=== PATIENT | female | born 1995 | race Caucasian/White ===

== ENCOUNTER 2023-03-17 19:41 | Inpatient (IN) | payer BC, SELFPAY ==
[2023-03-17 22:13] LABS: Amphetamine Screen Urine NEGATIVE (NEGATIVE); Barbiturates Screen Urine NEGATIVE (NEGATIVE); Benzodiazepines Screen Urine NEGATIVE (NEGATIVE); Buprenorphine Screen Urine NEGATIVE (NEGATIVE); Cannabinoid Screen Urine NEGATIVE (NEGATIVE); Cocaine Screen Urine NEGATIVE (NEGATIVE); Methadone Screen Urine NEGATIVE (NEGATIVE); Methamphetamines Screen Urine NEGATIVE (NEGATIVE); Opiate Screen Urine NEGATIVE (NEGATIVE); Oxycodone Screen Urine NEGATIVE (NEGATIVE); Phencyclidine Screen Urine NEGATIVE (NEGATIVE); Tricyclic Antidepressant Urine NEGATIVE (NEGATIVE)
[2023-03-17 22:47] LABS: Hemoglobin 11.4 g/dL (12.0-16.0); Mean Corpuscular HGB Conc 34.5 g/dL (29.9-35.2); Mean Corpuscular Hemoglobin 31.2 pg (26.7-34.0); Mean Corpuscular Volume 90.4 fL (81.0-99.0); Mean Platelet Volume 11.5 fL (9.5-13.5); Platelet Count 249 10^3/uL (150-450); Red Blood Count 3.65 10^6/uL (4.20-5.40); Red Cell Distribution Width 13.2 % (11.0-15.0); White Blood Count 9.6 10^3/uL (4.0-11.0)
[2023-03-17 22:49] VITALS: TEMP 36.9
[2023-03-17 22:49] LABS: Bilirubin Urine NEGATIVE (NEGATIVE); Blood Urine LARGE (NEGATIVE); Clarity Urine CLEAR (CLEAR); Color Urine YELLOW (YELLOW); Glucose Urine UA NEGATIVE (NEGATIVE); Ketones Urine NEGATIVE (NEGATIVE); Leukocyte Esterase Urine TRACE (NEGATIVE); Nitrite Urine NEGATIVE (NEGATIVE); Protein Urine TRACE mg/dL (NEG/TRACE); Specific Gravity Urine 1.025 (1.005-1.025); pH Urine 6.5 (5.0-9.0)
[2023-03-17 22:50] VITALS: BP 115/61; PULSE 82
[2023-03-17 22:51] LABS: Urine Microscopic Indicated YES
[2023-03-17 22:55] VITALS: BP 115/61; PULSE 82; RESP 18; TEMP 36.9
[2023-03-17 22:58] LABS: Bacteria Urine NONE SEEN #/HPF (NONE SEEN); Cast Seen? NONE SEEN #/LPF (NONE SEEN); Crystals Seen? None Seen #/HPF (None Seen); Mucus Urine NONE SEEN (NONE SEEN); Squamous Epithelial Cell Urine MANY #/LPF (NONE/RARE); Urine Culture Indicated YES
[2023-03-17] MEDS: ZOLPIDEM TARTRATE 5 MG TABLET PO (23:14)
[2023-03-18] VITALS (46 sets, daily range): BP systolic 109–138; BP diastolic 58–76; PULSE 56–91; RESP 16; TEMP 36.6–37.2
[2023-03-18] MEDS: 0.9 % SODIUM CHLORIDE 1,000 ML 1000 ML IV (02:53)
[2023-03-18] MEDS: AMPICILLIN SODIUM 2,000 MG in 0.9 % SODIUM CHLORIDE 100 ML 200 MG IV (02:53)
[2023-03-18] MEDS: 0.9 % SODIUM CHLORIDE 1,000 ML 125 ML IV (04:26)
[2023-03-18] MEDS: ROPIVACAINE HCL/PF 400 MG/200 ML PREMIX 6 MG EPIDURAL (04:27)
[2023-03-18] MEDS: FENTANYL CITRATE/PF 100 MCG/2 ML VIAL EPIDURAL ×2 (04:27→04:29)
[2023-03-18] MEDS: AMPICILLIN SODIUM 1,000 MG in 0.9 % SODIUM CHLORIDE 50 ML 100 MG IV (06:34)
--- NOTE | 2023-03-18 07:11 | PM.OBHP ---
OB - H&P: HPI History of Present Illness Chief complaint: CONTRACTIONS : 1 Para: 0 Gestational age based on last menstrual period: 40.6 Narrative: patient arrived to unit last evening in early labor, cramping and water intact. History of Present Dating criteria: LMP confirmed by 1st trimester US care: good care Ultrasounds: normal 1st trimester US and normal mid trimester US complications comment: anxiety Medical complications OB: none Labs Blood type: A (+) positive Rubella: immune RPR/VDLR: nonreactive GBS status: positive HBsAG: negative Narrative: +GBS in urine Review of Systems ROS Narrative ROS negative Meds Home Medications and Allergies Home Medications Medication Instructions Recorded Confirmed Type vitamin no.115-iron 29 1 tab PO Q24H 03/18/23 03/18/23 History mg-folic acid 1 mg chewable tablet ( 19) Allergies Allergy/AdvReac Type Severity Reaction Status Date / Time No Known Drug Allergies Allergy Verified 03/17/23 21:46 Exam Constitutional Vital Signs, click to edit/add: Last Vital Signs Temp 98 F 03/18/23 05:42 Pulse 72 03/18/23 07:11 Resp 16 03/18/23 06:27 BP 121/72 03/18/23 07:11 O2 Del Method Room Air 03/17/23 22:55 Common normals: no apparent distress, oriented x3 and alert General appearance: cooperative, comfortable and well kempt Orientation/consciousness: Yes awake, Yes oriented to person, Yes oriented to place and Yes oriented to time HENMT Common normals: normocephalic Eye Common normals: EOMs intact bilaterally Neck & C-Spine Common normals: full ROM Lymph Lymphatic: no lymphadenopathy noted Respiratory Common normals: normal respiratory effort Effort & inspection: able to speak in complete sentences Auscultation: clear to auscultation bilaterally Percussion: percussion normal Cardio Common normals: regular rate and regular rhythm Rate: regular rate Rhythm: regular rhythm GI Common normals: Normal to inspection, nondistended, normoactive bowel sounds present Common normals: no CVA tenderness Back & Pelvis Common normals: no CVA tenderness Extremity Common normals: normal to inspection, full ROM and no calf tenderness Neuro Common normals: oriented x3 Sensorium/orientation: awake, alert, oriented to person, oriented to place and oriented to time Psych Common normals: mental status grossly normal, thought process normal, cooperative and affect normal Attitude: calm Results Labs Labs: Short CBC 03/17/23 Range/Units 21:05 WBC 9.6 (4.0-11.0) 10^3/uL Hgb 11.4 L (12.0-16.0) g/dL Hct 33.0 L (36.0-48.0) % Plt Count 249 (150-450) 10^3/uL Urine 03/17/23 Range/Units 21:05 Urine Color Yellow (YELLOW) Urine Clarity Clear (CLEAR) Urine pH 6.5 (5.0-9.0) Ur Specific [place] 1.025 (1.005-1.025) Urine Protein Trace (NEG/TRACE) mg/dL Urine Glucose (UA) Negative (NEGATIVE) mg/dL OB - A/P Assessment and Plan (1) Term : Plan routine labor orders, epidural when desires. Anticipate
--- NOTE | 2023-03-18 07:20 | PM.EN ---
Event Note Event Note: 0705 to room to assess patient. SVE and AROM. Sterile amni-hook used for AROM with return of moderate amount of clear, odorless fluid. heart tones stable before, during and after rupture of membranes. SVE 7-8/100/-1. patient tolerated procedure well.
[2023-03-18] MEDS: OXYTOCIN/0.9 % SODIUM CHLORIDE 20 UNITS/1,000 ML PLAST..BAG 125 UNIT IV (09:11)
[2023-03-18] MEDS: KETOROLAC TROMETHAMINE 30 MG/ML VIAL IVP (09:41)
--- NOTE | 2023-03-18 09:57 | PM.OBPRCVD ---
Procedure Procedure: normal spontaneous vaginal delivery Intrapartal events: None Induction method: none Delivery augmentation: rupture of membranes and pitocin Delivery monitor: external FHT and external uterine Route of delivery: Episiotomy Description: none Laceration description: labial (bilateral ) Delivery repair: Vicryl Estimated blood loss (mL): 200 Anesthesia type: None Disposition: no change Delivery date: 03/18/23 Gender: female presentation: vertex Placental delivery description: Spontaneous cord description: 3 Vessels heart rate - 1 minute: 100 bpm or Greater respiratory effort - 1 minute: Spontaneous/Strong Cry muscle tone - 1 minute: Active Movement reflex response - 1 minute: Prompt Response color - 1 minute: Bluish Hands or Feet total score - 1 minute: 9 heart rate - 5 minute: 100 bpm or Greater respiratory effort - 5 minute: Spontaneous/Strong Cry muscle tone - 5 minute: Active Movement reflex response - 5 minute: Prompt Response color - 5 minute: Bluish Hands or Feet total score - 5 minute: 9
[2023-03-18] MEDS: GLYCERIN/WITCH HAZEL PADS 1 PAD TOPICAL (13:40)
[2023-03-18] MEDS: BENZOCAINE/MENTHOL 85 GRAM SPRAY BOTTLE 1 APPLIC TOPICAL (13:40)
[2023-03-18] MEDS: IBUPROFEN 400 MG TABLET 800 MG PO ×2 (13:41→21:00)
--- NOTE | 2023-03-18 23:06 | W.PC.ACHO ---
Registration Status: ADM IN Primary Language: Icelandic Preferred Language: Icelandic Active Medications Generic Name Dose Route Start Last Admin Trade Name Freq PRN Reason Stop Dose Admin Acetaminophen 650 mg 03/18/23 09:49 Acetaminophen 325 Mg Tablet PO Q6H PRN Mild Pain Al Hydroxide/Mg Hydroxide 2,400 mg 03/18/23 09:49 Magnesium Hydroxide 2,400 Mg/10 Ml Oral.Susp PO Q6H PRN Dyspepsia Benzocaine/Menthol 1 applic 03/18/23 09:49 03/18/23 13:40 Benzocaine/Menthol 85 Gram [place] Bottle TOPICAL 1 applic Q2H PRN Administration Pain Calcium Carbonate 500 mg 03/17/23 22:25 Calcium Carbonate 500 Mg (200mg Elemental) Tab Chew PO TID PRN Indigestion Carboprost Tromethamine 250 mcg 03/17/23 21:46 Carboprost Tromethamine 250 Mcg/Ml 1 Ml Vial IM 03/19/23 10:00 Q15M PRN Bleeding Diphtheria/Pertussis/Tetanus Vacc 0.5 ml 03/20/23 09:00 Adacel Diph,Pertuss(Acell),Tet Vac/Pf 0.5 Ml Adult Syringe IM 03/20/23 09:01 .ONCE ONE Docusate Sodium 100 mg 03/19/23 09:00 Docusate Sodium 100 Mg Capsule PO BID LEWIS Sodium Chloride 1,000 mls @ 125 mls/hr 03/17/23 22:00 03/18/23 09:11 Sodium Chloride 0.9% 1,000 Ml IV Infused .Q8H LEWIS Infusion Ibuprofen 800 mg 03/18/23 10:00 03/18/23 21:00 Ibuprofen 400 Mg Tablet PO 800 mg Q8H LEWIS Administration Measles/Mumps/Rubella Vaccine Live 0.5 ml 03/20/23 09:00 Measles,Mumps,Rubella Vacc/Pf 0.5 Ml Vial SQ 03/20/23 09:01 .ONCE ONE Methylergonovine Maleate 0.2 mg 03/17/23 21:46 Methylergonovine Maleate 0.2 Mg Tablet PO 03/19/23 10:00 Q4H PRN Uterine Contractility/Contract Methylergonovine Maleate 0.2 mg 03/17/23 21:46 Methylergonovine Maleate 0.2 Mg/Ml Ampule IM 03/19/23 10:00 ONCE PRN Uterine Contractility/Contract Misoprostol 600 mcg 03/17/23 21:46 Misoprostol 100 Mcg Tablet PO 03/19/23 10:00 ONCE PRN Uterine Bleeding Misoprostol 800 mcg 03/17/23 21:46 Misoprostol 100 Mcg Tablet SL 03/19/23 10:00 ONCE PRN Uterine Bleeding Misoprostol 1,000 mcg 03/17/23 21:46 Misoprostol 100 Mcg Tablet DE 03/19/23 10:00 ONCE PRN Uterine Bleeding Ondansetron HCl 4 mg 03/17/23 21:46 Ondansetron Pf 4 Mg/2 Ml Vial IV Q6H PRN Nausea And Vomiting Senna 17.2 mg 03/18/23 20:00 Sennosides 8.6 Mg Tablet PO QHS PRN Constipation Simethicone 80 mg 03/18/23 09:49 Simethicone 80 Mg Tab.Chew PO QID PRN Abdominal Distention Temazepam 15 mg 03/18/23 09:54 Temazepam 15 Mg Capsule PO QHS PRN Sleep Witch Yvette/Glycerin 1 pad 03/18/23 09:49 03/18/23 13:40 Glycerin/Witch Yvette Pads TOPICAL 1 pad Q2H PRN Administration Pain Zolpidem Tartrate 5 mg 03/17/23 22:25 03/17/23 23:14 Zolpidem Tartrate 5 Mg Tablet PO 5 mg HS PRN Administration Sleep Diet Category Date Time Status Regular Consistency Diet Diet 03/18/23 Breakfast Active Consults Category Date Time Status Consult to Anesthesiology Routine Cons 03/18/23 Ordered Respiratory Oxygen Delivery Method Room Air Oxygen Delivery Method Room Air Bowels Bowel Pattern No Bowel Movement Catheter Urinary Catheter Date of 03/18/23 Insertion [Urethral] Urinary Catheter Time of 04:45 Insertion [Urethral]
[2023-03-19] MEDS: ACETAMINOPHEN 325 MG TABLET 650 MG PO ×2 (03:53→12:27)
[2023-03-19] MEDS: IBUPROFEN 400 MG TABLET 800 MG PO ×2 (06:32→17:31)
[2023-03-19 08:51] VITALS: TEMP 36.6
[2023-03-19 08:52] VITALS: BP 114/55; PULSE 63
[2023-03-19] MEDS: DOCUSATE SODIUM 100 MG CAPSULE PO ×2 (12:27→21:23)
--- NOTE | 2023-03-19 13:15 | P.OBPN_ITS ---
OB - PN: Subj Subjective Patient comments: no complaints and pain well controlled [place] status: doing well Exam Constitutional Vital Signs, click to edit/add: Last Vital Signs Temp 97.9 F 03/19/23 08:51 Pulse 63 03/19/23 08:52 Resp 16 03/18/23 23:10 BP 114/55 03/19/23 08:52 O2 Del Method Room Air 03/18/23 23:12 Documenting provider has reviewed patient's vital signs: yes Common normals: no apparent distress Respiratory Common normals: normal respiratory effort and clear to auscultation bilaterally Cardio Common normals: regular rate and regular rhythm GI Common normals: Normal to inspection, nondistended, normoactive bowel sounds present Extremity Common normals: no clubbing, cyanosis or edema and no calf tenderness OB - PN: A/P Assessment and Plan (1) Term : Plan - Vaginal Delivery day: 1 Plan: routine care Time Spent with Patient Time: Total time spent is greater than 50% in coordination of care (as documented) at patient's floor/unit and/or counseling patient: Total time spent with greater than 50% in coordination of care (as documented) at patient's floor/unit and/or counseling patient: less than 15 minutes
[2023-03-19 17:29] VITALS: BP 123/75; PULSE 68
--- NOTE | 2023-03-19 19:12 | W.PC.ACHO ---
Registration Status: ADM IN Primary Language: Icelandic Preferred Language: Icelandic Active Medications Generic Name Dose Route Start Last Admin Trade Name Freq PRN Reason Stop Dose Admin Acetaminophen 650 mg 03/18/23 09:49 03/19/23 12:27 Acetaminophen 325 Mg Tablet PO 650 mg Q6H PRN Administration Mild Pain Al Hydroxide/Mg Hydroxide 2,400 mg 03/18/23 09:49 Magnesium Hydroxide 2,400 Mg/10 Ml Oral.Susp PO Q6H PRN Dyspepsia Benzocaine/Menthol 1 applic 03/18/23 09:49 03/18/23 13:40 Benzocaine/Menthol 85 Gram [place] Bottle TOPICAL 1 applic Q2H PRN Administration Pain Calcium Carbonate 500 mg 03/17/23 22:25 Calcium Carbonate 500 Mg (200mg Elemental) Tab Chew PO TID PRN Indigestion Diphtheria/Pertussis/Tetanus Vacc 0.5 ml 03/20/23 09:00 Adacel Diph,Pertuss(Acell),Tet Vac/Pf 0.5 Ml Adult Syringe IM 03/20/23 09:01 .ONCE ONE Docusate Sodium 100 mg 03/19/23 09:00 03/19/23 12:27 Docusate Sodium 100 Mg Capsule PO 100 mg BID LEWIS Administration Sodium Chloride 1,000 mls @ 125 mls/hr 03/17/23 22:00 03/18/23 09:11 Sodium Chloride 0.9% 1,000 Ml IV Infused .Q8H LEWIS Infusion Ibuprofen 800 mg 03/18/23 10:00 03/19/23 17:31 Ibuprofen 400 Mg Tablet PO 800 mg Q8H LEWIS Administration Measles/Mumps/Rubella Vaccine Live 0.5 ml 03/20/23 09:00 Measles,Mumps,Rubella Vacc/Pf 0.5 Ml Vial SQ 03/20/23 09:01 .ONCE ONE Ondansetron HCl 4 mg 03/17/23 21:46 Ondansetron Pf 4 Mg/2 Ml Vial IV Q6H PRN Nausea And Vomiting Senna 17.2 mg 03/18/23 20:00 Sennosides 8.6 Mg Tablet PO QHS PRN Constipation Simethicone 80 mg 03/18/23 09:49 Simethicone 80 Mg Tab.Chew PO QID PRN Abdominal Distention Temazepam 15 mg 03/18/23 09:54 Temazepam 15 Mg Capsule PO QHS PRN Sleep Witch Yvette/Glycerin 1 pad 03/18/23 09:49 03/18/23 13:40 Glycerin/Witch [place]vette Pads TOPICAL 1 pad Q2H PRN Administration Pain Zolpidem Tartrate 5 mg 03/17/23 22:25 03/17/23 23:14 Zolpidem Tartrate 5 Mg Tablet PO 5 mg HS PRN Administration Sleep Respiratory Oxygen Delivery Method Room Air
[2023-03-20 00:51] VITALS: BP 100/54; PULSE 57; TEMP 35.6
[2023-03-20 01:00] VITALS: RESP 16; TEMP 36.6
[2023-03-20] MEDS: IBUPROFEN 400 MG TABLET 800 MG PO ×2 (02:25→10:19)
[2023-03-20 08:19] VITALS: BP 122/66; PULSE 64
[2023-03-20] MEDS: DOCUSATE SODIUM 100 MG CAPSULE PO (10:20)
--- NOTE | 2023-03-20 11:09 | PM.OBDS ---
DS: Providers Provider Date of admission: 03/17/23 19:41 Primary care physician: Non-Staff Physician, Admitting clinician: STACEY SANTOS Consults: 03/18/23 Consult to Anesthesiology Routine Consulting Provider: Rodrigo Maxwell Reason for consultation: epidural procedure Has provider been notified: No Attending physician on discharge: Ana Maria Clancy Discharging clinician: Ana Maria Clancy Anticipated date of discharge: 03/20/23 DS: Diagnosis Discharge Diagnosis (1) Term : Assessment and plan: doing well, delivered vaginally without problem Plan discharge home with follow up in six weeks OB - DS: Summary Hospital Course Hospital Course: uncomplicated Time spent discussing smoking cessation with patient: 3 to 10 minutes Peripartum Data - Vaginal Delivery Laceration description: labial (bilateral) Episiotomy Description: none Complications complications: none Delivery method: spontaneous vaginal delivery Gender: female Discharge plan: home Status at Discharge Cognitive/behavioral status at discharge: normal Functional status at discharge: independent ambulation Overall status at discharge: patient is back to baseline Time Spent with Patient Time attestation: Total time spent providing and/or coordinating discharge services: Time spent: less than 30 minutes Exam Narrative Exam Narrative: feels well, anxious to go home Constitutional Vital Signs, click to edit/add: Last Vital Signs Temp 97.8 F 03/20/23 01:00 Pulse 64 03/20/23 08:19 Resp 16 03/20/23 01:00 BP 122/66 03/20/23 08:19 O2 Del Method Room Air 03/20/23 01:00 Documenting provider has reviewed patient's vital signs: yes Common normals: no apparent distress, oriented x3, no limitations and healthy appearing General appearance: cooperative, comfortable and well kempt Orientation/consciousness: Yes awake, Yes oriented to person, Yes oriented to place and Yes oriented to time HENMT Common normals: normocephalic and head/scalp atraumatic Eye Common normals: PERRL Pupil: accommodation reflex normal Neck & C-Spine Common normals: full ROM Respiratory Common normals: normal respiratory effort Cardio Common normals: regular rate and regular rhythm GI Common normals: Normal to inspection, nondistended, normoactive bowel sounds present Common normals: no CVA tenderness Extremity Common normals: normal to inspection, full ROM and no calf tenderness Neuro Common normals: oriented x3, CN's II-XII intact bilaterally, moves all extremities, no focal motor deficits and no sensory deficits noted Psych Common normals: mental status grossly normal, thought process normal, cooperative and affect normal Discharge Plan Discharge Disposition: Home, Self-Care Condition: Good Assessment: day 2. Doing well without complaints. Normal lochia. Breasts soft. Bonding well with baby. Instructions given by provider. Health Concerns: none Plan of Treatment: Discharge home, follow up for care appointment at six weeks Discharge Medications: Continued 19 29 mg iron- 1 mg tablet,chewable 1 tab PO Q24H Activity: increase activity as tolerated Activity Detail: walking only exercise for six weeks, no swimming for three weeks Diet: regular diet Activity Restrictions/Additional Instructions: no sexual intercourse for six weeks Forms: Vaginal Delivery - Discharge, Portal Instructions Follow Up Appointments: will call for appointment for exam in six weeks with provider Discharge location: home
== END 2023-03-20 12:05 | disposition home or self-care (01) | DRG 807 ==
PROVIDERS: Admitting Provider Midwife; Visit Provider Obstetrics & Gynecology
DX: O48.0 Post-term pregnancy (principal); Z37.0 Single live birth; O99.824 Streptococcus B carrier state complicating childbirth; Z3A.40 40 weeks gestation of pregnancy; O70.0 First degree perineal laceration during delivery
CPT/HCPCS: 36415; 51702; 59025; 59050; 59410; 80307; 81001; 85027; 86850; 86900; 86901; 87086; 96365; 96375; 96376

== ENCOUNTER 2023-03-24 08:15 | Outpatient (OUT) | payer BC, SELFPAY ==
[2023-03-24 11:40] VITALS: BP 128/86; PULSE 82; RESP 16; TEMP 37.2; O2SAT 98
--- NOTE | 2023-03-24 11:46 | PC.NURSE ---
Niurka Barboza arrives for visit. feels well, is able to rest during the day, and is getting 3 hour stretches at night between feeds. States milk came in on day 3, baby feeds well with no latching difficulties. If it hurts, I take her off and re-latch her Denies concerns for self or for care. Discussed care of breasts, catching milk with haakaa vs pumping vigorously. is only using haakaa at this time to collect dripping milk. Sig. other supportive and engages easily.
== END 2023-03-24 11:40 | disposition home or self-care (01) ==
LOC: FBCO 08:21
PROVIDERS: Visit Provider Obstetrics & Gynecology
DX: Z39.2 Encounter for routine postpartum follow-up (principal)

== ENCOUNTER 2024-07-07 02:36 | Inpatient (IN) | payer BC, SELFPAY ==
[2024-07-07] VITALS (40 sets, daily range): BP systolic 116–154; BP diastolic 61–85; PULSE 51–85; TEMP 36.4–37.1
[2024-07-07 03:20] LABS: Hematocrit 29.7 % (36.0-48.0); Hemoglobin 10.2 g/dL (12.0-16.0); Mean Corpuscular HGB Conc 34.3 g/dL (29.9-35.2); Mean Corpuscular Hemoglobin 31.5 pg (26.7-34.0); Mean Corpuscular Volume 91.7 fL (81.0-99.0); Mean Platelet Volume 10.9 fL (9.5-13.5); Platelet Count 218 10^3/uL (150-450); Red Blood Count 3.24 10^6/uL (4.20-5.40); Red Cell Distribution Width 12.5 % (11.0-15.0); White Blood Count 7.1 10^3/uL (4.0-11.0)
[2024-07-07] MEDS: LACTATED RINGER'S SOLUTION 1,000 ML 125 ML IV ×2 (03:24→05:06)
[2024-07-07] MEDS: ROPIVACAINE HCL/PF 400 MG/200 ML PREMIX 8 MG EPIDURAL (04:07)
--- NOTE | 2024-07-07 04:13 | PM.OBHP ---
OB - H&P: HPI History of Present Illness Chief complaint: CONTRACTIONS : 2 Para: 1 Gestational age based on last menstrual period: 39.6 Comments: spontaneous labor at home. Arrived on unit and patient was 6 cm, admit for routine labor and delivery History of Present Dating criteria: LMP confirmed by 1st trimester US care: good care Ultrasounds: normal 1st trimester US and normal mid trimester US complications comment: late care. Medical complications OB: none Labs Blood type: A (+) positive Rubella: immune RPR/VDLR: nonreactive GBS status: negative HBsAG: negative Review of Systems ROS Status of ROS: 10 or more systems reviewed and unremarkable except as noted in history and below [facility] Medical History (Updated 03/24/23 @ 00:00 by ) Term ?Z34.90 - Encounter for supervision of normal , unspecified, unspecified trimester (ICD-10) Meds Home Medications and Allergies Home Medications ?Medication ?Instructions ?Recorded ?Confirmed ?Type vitamin no.115-iron 29 1 tab PO Q24H 03/18/23 03/18/23 History mg-folic acid 1 mg chewable tablet ( 19) Allergies Allergy/AdvReac Type Severity Reaction Status Date / Time No Known Drug Allergies Allergy Verified 03/17/23 21:46 Exam Constitutional Vital Signs, click to edit/add: Last Vital Signs Pulse 73 07/07/24 04:11 BP 122/69 07/07/24 04:11 Documenting provider has reviewed patient's vital signs: yes Common normals: no apparent distress General appearance: cooperative and comfortable Orientation/consciousness: Yes awake, Yes oriented to person, Yes oriented to place and Yes oriented to time HENMT Common normals: normocephalic Eye Common normals: EOMs intact bilaterally Neck & C-Spine Common normals: full ROM and no lymphadenopathy General: normal visual inspection Lymph Lymphatic: no lymphadenopathy noted Chest Common normals: inspection of chest normal Respiratory Common normals: normal respiratory effort Effort & inspection: able to speak in complete sentences Cardio Common normals: regular rate and regular rhythm Rate: regular rate Rhythm: regular rhythm GI Common normals: Normal to inspection, nondistended, normoactive bowel sounds present Inspection: normal to inspection Auscultation: normoactive bowel sounds Palpation: soft Common normals: no CVA tenderness External Female Exam: normal appearance of the urethra Bimanual exam- vagina & uterus: normal bimanual exam Back & Pelvis Common normals: no CVA tenderness Thoracic spine/upper back: normal to inspection Lumbar spine/lower back: normal to inspection Extremity Common normals: normal to inspection Neuro Common normals: oriented x3 Sensorium/orientation: awake, alert, oriented to person, oriented to place and oriented to time Psych Common normals: mental status grossly normal, thought process normal, cooperative and affect normal Attitude: calm Speech: normal speech Results Labs Labs: Short CBC 07/07/24 Range/Units 03:09 WBC 7.1 (4.0-11.0) 10^3/uL Hgb 10.2 L (12.0-16.0) g/dL Hct 29.7 L (36.0-48.0) % Plt Count 218 (150-450) 10^3/uL Urinary Catheter Management Urinary Catheter Management Urethral: Cath placed during this visit: no Urethral indwelling: Yes Reason for continuing: prolonged immobilization
--- NOTE | 2024-07-07 04:38 | PM.OBPN ---
Exam Narrative Exam Narrative: SVE 9/100/0 bulging bag/ Sterile am[place] used to perform AROM with return of moderate amount of lightly blood tinged fluid, odorless fluid. heart tones are stable, before, during and after rupture of membranes at 140's Constitutional Vital Signs, click to edit/add: Last Vital Signs Pulse 69 07/07/24 04:35 BP 119/71 07/07/24 04:35 Results Labs Labs: Short CBC 07/07/24 Range/Units 03:09 WBC 7.1 (4.0-11.0) 10^3/uL Hgb 10.2 L (12.0-16.0) g/dL Hct 29.7 L (36.0-48.0) % Plt Count 218 (150-450) 10^3/uL Urinary Catheter Management Urinary Catheter Management Urethral: Cath placed during this visit: no Urethral indwelling: Yes OB - PN: A/P Time Spent with Patient Time: Total time spent is greater than 50% in coordination of care (as documented) at patient's floor/unit and/or counseling patient: Total time spent with greater than 50% in coordination of care (as documented) at patient's floor/unit and/or counseling patient: less than 15 minutes
[2024-07-07] MEDS: OXYTOCIN/0.9 % SODIUM CHLORIDE 20 UNITS/1,000 ML PLAST..BAG 125 UNIT IV (05:40)
[2024-07-07] MEDS: LIDOCAINE HCL 1% 200 MG/20 ML MDV INJ (05:40)
--- NOTE | 2024-07-07 06:00 | PM.OBPRCVD ---
Procedure Procedure: Normal spontaneous vaginal delivery events: No Care (late care- care began in 2nd trimester ) Induction method: none Delivery augmentation: rupture of membranes Delivery monitor: external FHT and external uterine Route of delivery: Episiotomy Description: none L&D Laceration Description: perineal - 1st degree Delivery repair: Vicryl Estimated blood loss (mL): 75 Anesthesia type: Epidural Disposition: no change Infant Delivery date: 07/07/24 Gender: male presentation: vertex Placental delivery description: Spontaneous cord description: 3 Vessels heart rate - 1 minute: 100 bpm or Greater respiratory effort - 1 minute: Spontaneous/Strong Cry muscle tone - 1 minute: Active Movement reflex response - 1 minute: Prompt Response color - 1 minute: Bluish Hands or Feet total score - 1 minute: 9 heart rate - 5 minute: 100 bpm or Greater respiratory effort - 5 minute: Spontaneous/Strong Cry muscle tone - 5 minute: Active Movement reflex response - 5 minute: Prompt Response color - 5 minute: Bluish Hands or Feet total score - 5 minute: 9
[2024-07-07] MEDS: BENZOCAINE/MENTHOL 85 GRAM SPRAY BOTTLE 1 APPLIC TOPICAL (06:20)
[2024-07-07] MEDS: GLYCERIN/WITCH HAZEL PADS 1 PAD TOPICAL (06:20)
[2024-07-07] MEDS: IBUPROFEN 400 MG TABLET 800 MG PO ×2 (06:21→17:26)
[2024-07-07 06:24] LABS: Amphetamine Screen Urine NEGATIVE (NEGATIVE); Barbiturates Screen Urine NEGATIVE (NEGATIVE); Benzodiazepines Screen Urine NEGATIVE (NEGATIVE); Buprenorphine Screen Urine NEGATIVE (NEGATIVE); Cannabinoid Screen Urine NEGATIVE (NEGATIVE); Cocaine Screen Urine NEGATIVE (NEGATIVE); Methadone Screen Urine NEGATIVE (NEGATIVE); Methamphetamines Screen Urine NEGATIVE (NEGATIVE); Opiate Screen Urine NEGATIVE (NEGATIVE); Oxycodone Screen Urine NEGATIVE (NEGATIVE); Phencyclidine Screen Urine NEGATIVE (NEGATIVE); Tricyclic Antidepressant Urine NEGATIVE (NEGATIVE)
[2024-07-08] MEDS: IBUPROFEN 400 MG TABLET 800 MG PO ×2 (05:00→12:16)
[2024-07-08 08:15] VITALS: TEMP 36.8
[2024-07-08] MEDS: DOCUSATE SODIUM 100 MG CAPSULE PO (08:36)
[2024-07-08 08:40] VITALS: BP 121/75; PULSE 65
--- NOTE | 2024-07-08 11:52 | P.OBPN_ITS ---
OB - PN: Subj Subjective Patient comments: no complaints and pain well controlled [place] status: doing well Exam Constitutional Vital Signs, click to edit/add: Last Vital Signs Temp 98.7 F 07/07/24 22:08 Pulse 65 07/08/24 08:40 Resp 16 07/07/24 22:08 BP 121/75 07/08/24 08:40 O2 Del Method Room Air 07/07/24 22:08 Documenting provider has reviewed patient's vital signs: yes Common normals: no apparent distress Respiratory Common normals: clear to auscultation bilaterally Cardio Common normals: regular rate and regular rhythm GI Common normals: Normal to inspection, nondistended, normoactive bowel sounds present Extremity Common normals: no clubbing, cyanosis or edema Urinary Catheter Management Urinary Catheter Management Urethral: Cath placed during this visit: yes Urethral indwelling: Yes Reason for continuing: not indwelling catheter Insertion date: 07/07/24 Insertion time: 04:45 OB - PN: A/P Plan - Vaginal Delivery day: 1 Plan: routine care, discharge home and follow up 6 weeks Time Spent with Patient Time: Total time spent is greater than 50% in coordination of care (as documented) at patient's floor/unit and/or counseling patient: Total time spent with greater than 50% in coordination of care (as documented) at patient's floor/unit and/or counseling patient: less than 15 minutes
== END 2024-07-08 15:30 | disposition home or self-care (01) | DRG 807 ==
PROVIDERS: Admitting Provider Midwife; Visit Provider Midwife
DX: O70.0 First degree perineal laceration during delivery (principal); Z37.0 Single live birth; Z3A.39 39 weeks gestation of pregnancy
CPT/HCPCS: 36415; 51701; 59050; 59410; 80307; 85027; 86850; 86900; 86901; J2795